=== PATIENT | male | born 1965 | race Caucasian/White ===

== ENCOUNTER 2018-04-14 19:27 | Emergency (ER) | payer SELFPAY ==
[~2018-04-14] VITALS: Ht 165.1 cm; Wt 73.0 kg
[2018-04-14] MEDS ORDERED: ACETAMINOPHEN 325MG TABLET PO STA (19:59)
[2018-04-14] MEDS ORDERED: KETOROLAC 30MG/ML VIAL IV STA (19:59)
[2018-04-14] MEDS ORDERED: SODIUM CHLORIDE 0.9% 1,000 ML IV ONE (19:59)
[2018-04-14 20:44] LABS: BASOPHILS % 0.6 % (0.0-2.0); EOSINOPHILS % 0.2 % (0.0-5.0); HEMATOCRIT. 46.9 % (42.0-52.0); HEMOGLOBIN. 16.1 g/dL (14.0-18.0); MEAN CORPUSCULAR HEMOGLOBIN 33.2 pg (28.0-32.0); MEAN CORPUSCULAR VOLUME 96.4 fL (80.0-94.0); MEAN PLATELET VOLUME 8.8 fl (7.4-10.4); NEUTROPHILS % 75.2 % (40.0-76.0); PLATELET 328 x1000/uL (130-400); RED BLOOD CELL COUNT 4.87 mill/uL (4.7-6.1); RED CELL DISTRIBUTION WIDTH 13.6 % (11.6-14.6)
[2018-04-14 20:46] LABS: CHLORIDE 101 mEq/L (98-107)
[2018-04-14 21:35] VITALS: BP 116/83
[2018-04-14 21:47] LABS: CLARITY URINE CLOUDY (CLEAR); COLOR URINE YELLOW (YELLOW); KETONES URINE NEGATIVE (NEGATIVE); LEUKOCYTE ESTERASE URINE TRACE (NEGATIVE); NITRITE URINE NEGATIVE (NEGATIVE); OCCULT BLOOD URINE NEGATIVE (NEGATIVE); PROTEIN URINE NEGATIVE (NEGATIVE); SPECIFIC GRAVITY URINE 1.021 (1.005-1.030)
== END 2018-04-14 22:03 | disposition home or self-care (01) ==
LOC: ER 19:27
DX: N30.00 Acute cystitis without hematuria (principal); R52 Pain, unspecified; R03.0 Elevated blood-pressure reading, without diagnosis of hypertension
CPT/HCPCS: 36415; 71045; 80053; 81003; 85025; 93005; 96374; 99285; J1885; J7030

== ENCOUNTER 2022-06-29 23:25 | Emergency (ER) | payer MEDICAID ==
[~2022-06-29] VITALS: Ht 165.1 cm; Wt 72.2 kg
[2022-06-30 00:55] VITALS: BP 112/67
== END 2022-06-30 05:50 | disposition left against medical advice (07) ==
LOC: ER 23:54
DX: Z53.21 Procedure and treatment not carried out due to patient leaving prior to being seen by health care provider (principal)